=== PATIENT | male | born 1955 | race Caucasian/White ===

== ENCOUNTER → 2023-07-23 09:01 | Outpatient (REF) | payer BC, SELFPAY | LOC: RAD 09:01 | PROVIDERS: ATTENDING PHYSICIAN Internal Medicine Medical Oncology; FAMILY PHYSICIAN Internal Medicine | DX: C61 Malignant neoplasm of prostate (principal); R79.89 Other specified abnormal findings of blood chemistry | CPT/HCPCS: 77080 ==